=== PATIENT | male | born 1995 | race Two or more races ===

== ENCOUNTER 2018-07-17 03:27 | Emergency (ER) | payer SELFPAY ==
[~2018-07-17] VITALS: Ht 154.9 cm; Wt 65.3 kg
--- NOTE | 2018-07-17 03:50 | NUR ---
PATIENT BROUGHT IN BY [facility] [address] FOR ETOH.PATIENT AOX2. NO ACUTE DSTRESS NOTED.VS STABLE.SAFETY MEASURES OBSERVED.DENIES PAIN.CONTINUE MONITORING.
--- NOTE | 2018-07-17 06:00 | NUR ---
PATIENT SLEEPING.APPEARS COMFORTABLE.VS STABLE.CONTINUE TO MONITOR.
--- NOTE | 2018-07-17 07:27 | NUR ---
PATIENT STILL SLEEPING.NO DISTRESS NOTED.REPORT GIVEN TO MOE LAM FOR CONTINUITY OF CARE.
--- NOTE | 2018-07-17 10:19 | NUR ---
AMBULATED TO WITH STEADY GAIT TO WAIT FOR RIDE. VERBALIZED UNDERSTANDING OF ACI
--- NOTE | 2018-07-17 10:22 | NUR ---
(pt. ambulatory with a steady gait PT. VERBALIZED UNDERSTANDING OF AFTERCARE INSTRUCTIONS.Patient discharged to home in stable condition. Written and verbal after care instructions given. Patient verbalizes understanding of instruction.
[2018-07-17 10:24] VITALS: BP 115/72
== END 2018-07-17 10:24 | disposition home or self-care (01) ==
LOC: ER 03:30
DX: F10.129 Alcohol abuse with intoxication, unspecified (principal); Y90.9 Presence of alcohol in blood, level not specified; Z59.0 Homelessness
CPT/HCPCS: 99283; A4606; Z7610